=== PATIENT | female | born 1985 | race Two or more races ===

== ENCOUNTER 2022-04-29 05:20 | Inpatient (IN) | payer OTHER ==
[~2022-04-29] VITALS: Ht 149.9 cm; Wt 2.7 kg
[2022-04-29] MEDS ORDERED: PRENATAL TABLE1 EAC1 PO (06:08)
== END 2022-05-02 11:48 | disposition home or self-care (01) | DRG 788 ==
LOC: LDR 05:20 → OB/GYN 11:03
PROVIDERS: ADMIT Obstetrics & Gynecology; ATTEND Obstetrics & Gynecology
PROC: 4A1HXCZ Monitoring of Products of Conception, Cardiac Rate, External Approach (ICD-10-PCS; 2022-04-29)
PROC: 10D00Z1 Extraction of Products of Conception, Low, Open Approach (ICD-10-PCS; principal; 2022-04-29 12:45)
DX: O36.5930 Maternal care for other known or suspected poor fetal growth, third trimester, not applicable or unspecified (principal); O32.8XX0 Maternal care for other malpresentation of fetus, not applicable or unspecified; Z3A.38 38 weeks gestation of pregnancy; Z37.0 Single live birth; Z20.822 Contact with and (suspected) exposure to COVID-19

== ENCOUNTER → 2023-01-28 | Emergency (ER) | payer OTHER ==
[~2023-01-28] VITALS: Ht 149.9 cm; Wt 63.5 kg
[~2023-01-28] MED LIST: PRENATAL TABLE1 EAC1 PO; ZITHROMAX500 MG PO
== END | disposition home or self-care (01) ==
LOC: ER 21:30
DX: J06.9 Acute upper respiratory infection, unspecified (principal)